=== PATIENT | male | born 1945 | race Caucasian/White ===

== ENCOUNTER 2018-12-28 08:18 | Outpatient (REF) | payer MEDICARE, BC, SELFPAY ==
[2018-12-28 12:34] LABS: HCT 44.4 % (40.0-50.0); HGB 14.7 g/dL (13.5-17.5); Mean Corp. HGB Concentration 33.1 g/dL (32.0-36.0); Mean Corpuscular Hemoglobin 33.8 pg (27.0-33.0); Mean Corpuscular Volume 102.1 fL (80-95); Mean Platelet Volume 10.4 fL (8.0-11.0); Platelet Count 216 x1000/uL (130-400); RBC 4.35 m/cumm (4.50-6.00); RBC Distribution Width 11.9 % (11.8-14.1); White Blood Cell Count 4.32 k/cumm (4.4-10.8)
[2018-12-28 13:05] LABS: ALT 100 U/L (12-78); AST 37 U/L (15-37); BUN 13 mg/dL (7-18); CREATININE 0.94 mg/dL (0.70-1.30); Calcium 9.1 mg/dL (8.5-10.1); Calculated LDL 102 mg/dL; Chloride 104 mmol/L (98-107); Cholesterol 168 mg/dL (50-200); Glucose 91 mg/dL (70-100); HDL Cholesterol 56 mg/dL (40-60); Potassium 4.7 mmol/L (3.5-5.1); Sodium 141 mmol/L (136-145); Triglyceride 53 mg/dL (30-150)
== END 2018-12-28 08:38 ==
LOC: NCHCN 08:18
PROVIDERS: PCP Nurse Practitioner; Visit Provider Nurse Practitioner Family
DX: R53.83 Other fatigue (principal); R74.0 Nonspecific elevation of levels of transaminase and lactic acid dehydrogenase [LDH]
CPT/HCPCS: 80048; 80061; 83721; 85027; 84450; 84460

== ENCOUNTER 2019-10-30 21:20 | Outpatient (REF) | payer MEDICARE, BC, SELFPAY ==
[2019-11-01 09:42] LABS: Lyme Ab w Rflx to Lyme Confirm Negative (Negative)
[2019-11-02 23:43] LABS: Anaplasma phagocytophilum Negative (Negative); B. miyamotoi PCR Negative (Negative); Babesia divergens/MO-1 Negative (Negative); Babesia duncani Negative (Negative); Babesia microti Negative (Negative); Ehrlichia chaffeensis Negative (Negative); Ehrlichia ewingii/canis Negative (Negative); Ehrlichia muris eauclairensis Negative (Negative)
== END 2019-10-30 21:40 ==
LOC: NCHCN 21:20
PROVIDERS: PCP Nurse Practitioner; Visit Provider Physician Assistant
DX: R53.83 Other fatigue (principal)
CPT/HCPCS: 87798; 86618

== ENCOUNTER 2019-11-27 11:18 | Outpatient (CLI) | payer MEDICARE, BC, SELFPAY ==
[2019-12-02 11:02] LABS: SARS-CoV-2 RNA Undetected (Undetected); SARS-CoV-2 Specimen Source Nasopharynx
== END 2019-11-27 11:38 ==
PROVIDERS: PCP Nurse Practitioner; Visit Provider Physician Assistant
DX: Z03.818 Encounter for observation for suspected exposure to other biological agents ruled out (principal)
CPT/HCPCS: U0003

== ENCOUNTER 2020-10-10 08:54 | Outpatient (CLI) | payer MEDICARE, BC, SELFPAY ==
--- NOTE | 2020-10-28 12:50 | ZIOP_ITS ---
Date of service: 10/28/20 Time of Service: 12:50 14 Day Refrigeration Lead Referring Provider:: Noé Mclain Indications:: SVT Note: This is a 14-day Holter monitor, ordered for supraventricular tachycardia Rhythm throughout was sinus with an average heart rate of 65. Minimum was 39, maximum 130 There were very rare isolated ventricular ectopic beats. There was a 20 beat run of nonsustained ventricular tachycardia which occurred at approximately 3 AM and was asymptomatic There were rare atrial premature beats. There were a total of 45 self-limited atrial runs, the longest of which was 9 beats in duration No patient symptoms were reported There was no atrial fibrillation, no high-grade AV block, no pauses greater than 3 seconds
== END 2020-10-10 08:55 | disposition home or self-care (01) ==
PROVIDERS: PCP Nurse Practitioner; Visit Provider Internal Medicine Cardiovascular Disease
DX: I47.1 Supraventricular tachycardia (principal)
CPT/HCPCS: 93246

== ENCOUNTER 2020-10-28 12:50 | Outpatient (CLI) | payer MEDICARE, BC, SELFPAY | END 2020-10-28 12:51 | LOC: CARDO 12-26 15:54 | PROVIDERS: PCP Physician Assistant; Referring Provider Physician Assistant; Visit Provider Internal Medicine Cardiovascular Disease | DX: I47.1 Supraventricular tachycardia (principal); I47.2 Ventricular tachycardia; I49.1 Atrial premature depolarization | CPT/HCPCS: 93248 ==

== ENCOUNTER 2020-11-07 02:29 | Outpatient (CLI) | payer MEDICARE, BC, SELFPAY ==
--- NOTE | 2020-11-07 09:25 | DI.US_ITS ---
APPROVED REPORT EXAM: Comprehensive 2D, Doppler, and color-flow Echocardiogram Patient Location: Out-Patient Hvac Service Manager: Tori Fairbanks RDCS (AE) Indications: SVT Other Information Study Quality: Adequate Conclusion Left Ventricle : The left ventricle is normal size. There is normal left ventricular wall thickness. The left ventricular systolic function is normal. The left ventricular ejection fraction is within th e normal range. There is no ventricular septal defect visualized. LVEF is 57%. Right Ventricle : The right ventricle is normal size. The right ventricular systolic function is norm al. The RVSP is 18.0mmHg. Atria : The left atrium size is normal. The right atrium size is normal. Mitral Valve : The mitral valve is normal in structure. Mild mitral regurgitation. No evidence of vicky ral valve stenosis. Great Vessels : The aortic root is normal in size. The ascending aorta is mildly dilated. Ascending a thaddeus is not well visualized. IVC is normal in size and collapses >50% with inspiration. Please see remainder of study for further details. Wall motion Left Ventricle The left ventricle is normal size. The left ventricular systolic function is normal. The left ventric ular ejection fraction is within the normal range. There is normal left ventricular wall thickness. T here is normal LV segmental wall motion. There is no ventricular septal defect visualized. LVEF is 57 %. Right Ventricle The right ventricle is normal size. The right ventricular systolic function is normal. The RVSP is 18 .0mmHg. Atria The left atrium size is normal. The right atrium size is normal. The interatrial septum is intact wit h no evidence for an atrial septal defect. Aortic Valve The aortic valve is normal in structure. Aortic valve is trileaflet. There is no aortic valvular sten osis. No aortic regurgitation is present. Mitral Valve The mitral valve is normal in structure. No evidence of mitral valve stenosis. Mild mitral regurgitat ion. Tricuspid Valve The tricuspid valve is normal in structure. There is no tricuspid valve stenosis. Trace tricuspid reg urgitation. Pulmonic Valve The pulmonary valve is normal in structure. There is no pulmonic valvular stenosis. Mild pulmonic reg urgitation. Great Vessels The aortic root is normal in size. The ascending aorta is mildly dilated. Ascending aorta is not well visualized. IVC is normal in size and collapses >50% with inspiration. Pericardium There is no pericardial effusion. 2D Dimensions IVSD d PLAX 0.98 cm M: 0.6-1.2 LV Vol A2C d MOD 114.2 mL LVPW d PLAX 0.96 cm M: 0.6 - 1.2 LV Vol A4C d MOD 110.2 mL LVID d PLAX 4.72 cm M: 4.2 - 5.8 LA vol/ BSA A2C s A-L 38.3 mL/m2 LVDs 3.30 cm M: 2.5 - 4.0 LA vol/ BSA A4C s A-L 32.3 mL/m2 Ao Root d 3.26 cm M: 3.1 - 3.7 LA Vol/ BSA Biplane s A-L 35.2 mL/m2 RA Area A4C 12.91 cm2 LA Area A4C s MOD 19.18 cm2 RA Vol/ BSA A4C s A-L 19.1 mL/m2 LA Area A2C s MOD 20.85 cm2 Ao Asc Diam d 3.59 cm M: 2.6 - 3.4 LV EF A4C MOD 57.1 % LV EF Teichholz 57.0 % LV EF A2C MOD 57.3 % LVEF (South's) 56.76 % M: 52 - 72 LV EF Biplane MOD 56.8 % LV Volume 86.86 mL M: 62 - 150 SV 64.28 mL LV Volume Index 46.44 mL/m2 M: 34 - 74 SV Index 34.32 mL/m2 LV Vol Biplane MOD 113.3 mL FS 29.85 % LV Diastology E/A Ratio 1.3 MV E Vmax 0.71 (0.4-1.3 m/s) MV A Vmax 0.55 (0.4-1.3 m/s) MV E/A Ratio 1.24 Aortic Valve LVOT Area 3.59 cm2 AoV Area Vmax 2.84 cm2 LVOT Vmax 0.91 m/s AoV Area/ BSA (Vmax) 1.52 cm2/m2 LVOT Mean Korey. 0.59 m/s SLOAN Mean Korey. 2.76 cm2 LVOT Peak Grad 3.3 mmHg SLOAN Mean Korey. Index 1.47 cm2/m2 LVOT Mean Grad 1.6 mmHg LVOT VTI 0.215 m LVOT Diam s 2.10 cm AoV Vmax 1.15 m/s Velocity Ratio 0.79 AoV Mean Korey. 0.76 m/s AoV Peak Grad 5.3 mmHg LVOT SV 77.28 mL AoV Mean Grad 2.7 mmHg AoV VTI 0.228 m AoV Area VTI 3.39 cm2 AoV Area/ BSA (VTI) 1.81 cm/m2 Mitral Valve MV DT 225 (160-240 msec) MR Vmax 5.30 m/s MV PHT 65 msec MR VTI 1.439 m MV Area PHT 3.37 cm2 MR Peak Grad 112.5 mmHg MV VTI 0.255 m MR Mean Grad 83.8 mmHg MV Area VTI 3.03 (4.0-6.0 cm2) Pulmonary Valve PV Vmax 0.91 (0.5-1.5 m/s) RVOT Peak Gr. 1.72 mmHg PV Peak Grad 3.3 mmHg RVOT Mean Gr. 0.85 mmHg PV Mean Grad 1.8 mmHg RVOT VTI 0.132 m PV VTI 0.199 m RVOT Vmax 0.66 m/s Tricuspid Valve TR Peak Grad 14.9 mmHg TR Vmax 1.94 m/s RA Pressure 3.00 mmHg RVSP (TR) 18.0 mmHg
== END 2020-11-07 02:49 ==
PROVIDERS: PCP Nurse Practitioner; Visit Provider Internal Medicine Cardiovascular Disease
DX: I47.1 Supraventricular tachycardia (principal); I34.0 Nonrheumatic mitral (valve) insufficiency; I77.810 Thoracic aortic ectasia
CPT/HCPCS: 93306

== ENCOUNTER → 2020-11-20 09:27 | Outpatient (BNVA) | payer MEDICARE, BC, SELFPAY | PROVIDERS: PCP Nurse Practitioner; Referring Provider Nurse Practitioner; Visit Provider Internal Medicine Cardiovascular Disease | DX: I47.1 Supraventricular tachycardia (principal) | CPT/HCPCS: 93005; 99203; 99204 ==

== ENCOUNTER → 2020-12-16 08:58 | Outpatient (BNVA) | payer MEDICARE, BC, SELFPAY | PROVIDERS: PCP Physician Assistant; Referring Provider Nurse Practitioner; Visit Provider Internal Medicine Cardiovascular Disease | DX: I47.1 Supraventricular tachycardia (principal); R07.89 Other chest pain | CPT/HCPCS: 99214; 99213 ==

== ENCOUNTER 2020-12-16 13:44 | Outpatient (REF) | payer MEDICARE, BC, SELFPAY ==
[2020-12-16 19:24] LABS: Anion Gap 8.1 mmol/L (3-11); BUN 18 mg/dL (7-18); CO2 28.9 mmol/L (21.0-32.0); Calcium 9.3 mg/dL (8.5-10.1); Calculated LDL 125 mg/dL (<100); Chloride 104 mmol/L (98-107); Cholesterol 183 mg/dL (<200); Glucose 84 mg/dL (74-106); HDL Cholesterol 48 mg/dL (40-60); Potassium 4.9 mmol/L (3.5-5.1); Sodium 141 mmol/L (136-145); Triglyceride 52 mg/dL (<150)
== END 2020-12-16 13:45 | disposition home or self-care (01) ==
LOC: NCHCN 13:44
PROVIDERS: PCP Physician Assistant; Visit Provider Physician Assistant
DX: R07.89 Other chest pain (principal); I47.1 Supraventricular tachycardia
CPT/HCPCS: 80048; 80061

== ENCOUNTER 2020-12-29 00:13 | Outpatient (CLI) | payer MEDICARE, BC, SELFPAY ==
--- NOTE | 2020-12-29 07:15 | DI.NM_ITS ---
APPROVED REPORT Exam: Exercise Treadmill Patient Location: Out-Patient Room/Bed: Stress Nurse: Judith Yuan RN Ordering Provider:CHARLIE STRATTON, Contact Number: [phone] BMI: 22.95 Baseline Rhythm: Sinus Bradycardia Indications: Left arm numbness, Chest pain. Medical History Medical History: NSVT Cardiac Medications: Metoprolol succinate Allergies: Sulf Cardiac Risk Factors: None Previous Cardiac Procedures: None Pretest Chest Pain Characteristics: No chest pain Exercise History: Physically active Physical Disabilities: None Lung Sounds: Clear to auscultation Heart Sounds: Regular Stress Test Details Test: Exercise stress testing was performed using a Gilson protocol. Nuclear Acquisition: Rest Tc-99m/Stress Tc-99m 1 day Rest Isotope: Tc-99m Sestamibi. Dose: 11.1 Date: 12/29/2020 Injection Time: 0855 Stress Isotope: Tc-99m Sestamibi. Dose: 36.2 Date: 12/29/2020 Injection Time: 1150 HR Resting HR Supine: 50 bpm Max Heart Rate (APMHR): 145.464710 bpm Resting HR Standin bpm Target HR (85% APMHR): 123.580181 bpm Max HR Achieved: 162 bpm % of APMHR: 111.72 Recovery HR: 84 bpm HR response to stress: Normal HR response to stress BP Resting BP Supine: 154/80 mmHg Resting BP Standin/70 mmHg Max BP: 218/60 mmHg Recovery BP: 172/70 mmHg BP response to stress: Normal blood pressure response to stress. ECG Resting ECG: Sinus Bradycardia Ectopy: None Stress ECG: Sinus Tachycardia ST Change: Horizontal ST depression Lead(s): II, III, aVF, V4, V5 Stage: [address] Deviation: 2 mm Arrhythmia: PVCs, PACs Recovery ECG: Sinus Rhythm Recovery ST Change: No significant ST segment changes noted Recovery Arrhythmia: PACs Comment: development of U wave in recovery period. Clinical Reason for Termination: Fatigue Stress Symptoms: General Fatigue Exercise duration: 08 min21 sec Highest Stage Reached: Stage 3: 3.4 mph at 14% grade. Exercise capacity: 10.16 METs Rate Pressure Product: [id number] Stress ECG Conclusion 1. The resting electrocardiogram showed voltage for left ventricular hypertrophy 2. The patient exercised on the Gilson protocol and completed a workload of 10.16 METS, stopping due t o fatigue 3. Hypertensive blood pressure response to exercise. Normal heart rate response to exercise. The pa tient achieved greater than 100% of predicted heart rate for age 4. Echocardiographically the test was consistent with myocardial ischemia with [address] depression in the inferior and anterolateral leads at peak exercise 5. Sporadic atrial and ventricular premature beats were seen Stress Test Summary STAGE Time (mins) Speed (mph) Grade (%) HR BP SYMPTOMS METS Supine 50 154/80 Standing 55 156/70 1 3 1.7 10 90 184/78 4.6 2 6 2.5 12 120 194/72 7 1 min recovery 146 212/58 3 min recovery 96 218/60 6 min recovery 84 172/70 MPI Conclusion Myocardial perfusion is normal without evidence of ischemia or prior infarction Radiologist Interpretation Radiologist agrees with Stone Cleaner's Interpretation. Radiologist Interpretation by: Zuleika Thompson MD
== END 2020-12-29 00:33 ==
PROVIDERS: PCP Physician Assistant; Visit Provider Internal Medicine Cardiovascular Disease
DX: R07.9 Chest pain, unspecified (principal); R20.8 Other disturbances of skin sensation; I49.1 Atrial premature depolarization; I49.3 Ventricular premature depolarization; I25.9 Chronic ischemic heart disease, unspecified
CPT/HCPCS: 78452; 93016; 93018; 93017

== ENCOUNTER → 2021-01-08 11:00 | Outpatient (BNVA) | payer MEDICARE, BC, SELFPAY | PROVIDERS: PCP Physician Assistant; Referring Provider Physician Assistant; Visit Provider Internal Medicine Cardiovascular Disease | DX: I47.1 Supraventricular tachycardia (principal) | CPT/HCPCS: 99214; 99442 ==

== ENCOUNTER 2021-12-08 15:20 | Outpatient (REF) | payer MEDICARE, BC, SELFPAY ==
[2021-12-08 17:23] LABS: Anion Gap 6.9 mmol/L (3-11); BUN 14 mg/dL (7-18); CO2 28.1 mmol/L (21.0-32.0); CREATININE 1.2 mg/dL (0.70-1.30); Calcium 9.3 mg/dL (8.5-10.1); Calculated LDL 85 mg/dL (<100); Chloride 102 mmol/L (98-107); Cholesterol 145 mg/dL (<200); Estimated GFR 58.86 (mL/min/1.73m2); Glucose 94 mg/dL (74-106); HDL Cholesterol 48 mg/dL (40-60); Potassium 4.3 mmol/L (3.5-5.1); Sodium 137 mmol/L (136-145); Triglyceride 60 mg/dL (<150)
== END 2021-12-08 15:21 | disposition home or self-care (01) ==
LOC: NCHCN 15:20
PROVIDERS: PCP Physician Assistant; Visit Provider Physician Assistant
DX: Z13.89 Encounter for screening for other disorder (principal)
CPT/HCPCS: 80048; 80061

== ENCOUNTER 2022-12-15 17:15 | Outpatient (REF) | payer MEDICARE, BC, SELFPAY ==
[2022-12-15 16:27] LABS: HCT 41.8 % (40.0-50.0); HGB 14.2 g/dL (13.5-17.5); MCH 34.1 pg (27.0-33.0); MCV 100 fL (80-95); MPV 10.1 fL (8.0-11.0); Platelet Count 239 10^3/uL (130-400); RBC 4.17 10^6/uL (4.36-5.78); RDW 11.9 % (11.8-14.1); RDW-SD 43.9 fL; WBC 4.11 10^3/uL (4.4-10.8)
[2022-12-15 16:47] LABS: Anion Gap 6.9 mmol/L (3-11); BUN 17 mg/dL (7-18); CO2 28.1 mmol/L (21.0-32.0); CREATININE 1.1 mg/dL (0.70-1.30); Calcium 9.4 mg/dL (8.5-10.1); Calculated LDL 92 mg/dL (<100); Chloride 105 mmol/L (98-107); Cholesterol 159 mg/dL (<200); Estimated GFR 69.14 (mL/min/1.73m2); Glucose 97 mg/dL (74-106); HDL Cholesterol 50 mg/dL (40-60); Potassium 4.9 mmol/L (3.5-5.1); Sodium 140 mmol/L (136-145); Triglyceride 87 mg/dL (<150)
== END 2022-12-15 17:16 | disposition home or self-care (01) ==
LOC: NCHCN 17:15
PROVIDERS: PCP Physician Assistant; Visit Provider Physician Assistant
DX: Z00.00 Encounter for general adult medical examination without abnormal findings (principal)
CPT/HCPCS: 80048; 80061; 85027

== ENCOUNTER 2023-12-14 11:42 | Outpatient (CLI) | payer MEDICARE, BC, SELFPAY ==
[2023-12-14 10:39] LABS: HCT 43.1 % (40.0-50.0); HGB 14.4 g/dL (13.5-17.5); MCH 33.6 pg (27.0-33.0); MCHC 33.4 % (32.0-36.0); MCV 101 fL (80-95); MPV 9.2 fL (8.0-11.0); Platelet Count 207 10^3/uL (130-400); RBC 4.29 10^6/uL (4.36-5.78); RDW 11.8 % (11.8-14.1); RDW-SD 43.5 fL
[2023-12-14 12:02] LABS: ALT 55 U/L (16-63); AST 25 U/L (15-37); Albumin 3.8 g/dL (3.4-5.0); Alkaline Phosphatase 103 U/L (46-116); Anion Gap 5.2 mmol/L (3-11); BUN 15 mg/dL (7-18); Bilirubin, Total 0.46 mg/dL (0.2-1.0); CO2 30.8 mmol/L (21.0-32.0); CREATININE 1.1 mg/dL (0.70-1.30); Calcium 9.8 mg/dL (8.5-10.1); Calculated LDL 64 mg/dL (<100); Chloride 106 mmol/L (98-107); Cholesterol 151 mg/dL (<200); Estimated GFR 68.71 (mL/min/1.73m2); Glucose 82 mg/dL (74-106); HDL Cholesterol 49 mg/dL (40-60); Potassium 4.5 mmol/L (3.5-5.1); Sodium 142 mmol/L (136-145); Total Protein 6.6 g/dL (6.4-8.2); Triglyceride 191 mg/dL (<150)
== END 2023-12-14 11:43 | disposition home or self-care (01) ==
LOC: LBO 11:46
PROVIDERS: PCP Physician Assistant; Visit Provider Physician Assistant
DX: Z00.00 Encounter for general adult medical examination without abnormal findings (principal)
CPT/HCPCS: 36415; 80053; 80061; 85027

== ENCOUNTER 2025-01-09 18:14 | Outpatient (REF) | payer MEDICARE, BC, SELFPAY ==
[2025-01-09 17:51] LABS: HCT 42.6 % (40.0-50.0); HGB 14.0 g/dL (13.5-17.5); MCH 33.3 pg (27.0-33.0); MCHC 32.9 % (32.0-36.0); MCV 101 fL (80-95); MPV 10.2 fL (8.0-11.0); Platelet Count 190 10^3/uL (130-400); RBC 4.20 10^6/uL (4.36-5.78); RDW 11.7 % (11.8-14.1); RDW-SD 43.5 fL; WBC 4.35 10^3/uL (4.4-10.8)
[2025-01-09 18:07] LABS: ALT 33 U/L (16-63); AST 17 U/L (15-37); Albumin 3.9 g/dL (3.4-5.0); Alkaline Phosphatase 91 U/L (46-116); Anion Gap 4.2 mmol/L (3-11); BUN 15 mg/dL (7-18); Bilirubin, Total 0.6 mg/dL (0.2-1.0); CO2 30.8 mmol/L (21.0-32.0); Calcium 9.3 mg/dL (8.5-10.1); Calculated LDL 78 mg/dL (<100); Chloride 105 mmol/L (98-107); Cholesterol 143 mg/dL (<200); Estimated GFR 68.29 (mL/min/1.73m2); Glucose 117 mg/dL (74-106); HDL Cholesterol 44 mg/dL (>or=40); Potassium 4.7 mmol/L (3.5-5.1); Sodium 140 mmol/L (136-145); Total Protein 6.2 g/dL (6.4-8.2); Triglyceride 108 mg/dL (<150)
== END 2025-01-09 18:15 | disposition home or self-care (01) ==
LOC: NCHCN 18:14
PROVIDERS: PCP Physician Assistant; Visit Provider Physician Assistant
DX: Z00.00 Encounter for general adult medical examination without abnormal findings (principal)
CPT/HCPCS: 80053; 80061; 85027